=== PATIENT | male | born 1980 | race Caucasian/White ===

== ENCOUNTER 2022-09-28 02:23 | Emergency (ER) | payer MEDICARE, OTHER, MEDICAID ==
[2022-09-28] MEDS ORDERED: Azithromycin 250 MG Tab PO ONE (02:24)
== END 2022-09-28 03:02 | disposition other institution (70) ==
LOC: FB.ED 02:23
DX: J40 Bronchitis, not specified as acute or chronic (principal); Z79.82 Long term (current) use of aspirin
CPT/HCPCS: 99283; 99284; A9270-GY

== ENCOUNTER 2022-09-28 14:18 | Emergency (ER) | payer MEDICARE, OTHER, MEDICAID ==
[2022-09-28] MEDS: LORazepam 2 MG/ML SDV IM ONE (15:15)
[2022-09-28 16:22] LABS: HEMOGLOBIN 15.8 g/dL (12.9-17.7); MEAN CORPUSCULAR HEMOGLOBIN 32.2 pg (27.0-33.3); MEAN CORPUSCULAR HGB CONC 33.6 g/dL (28.7-35.3); MEAN CORPUSCULAR VOLUME 95.8 fL (80.8-98.7); RED BLOOD CELL COUNT 4.9 x10(6)uL (3.90-5.90); WHITE BLOOD CELL COUNT,WBC 12.7 x10-3/uL (3.2-10.1)
[2022-09-28 16:26] LABS: BLOOD UREA NITROGEN,BUN 16 mg/dL (7-18); CALCIUM 10.5 mg/dL (8.6-10.2); CARBON DIOXIDE,CO2 28 mmol/L (21-32); CHLORIDE,CL 106 mmol/L (100-110); ESTIMATED GFR 98 mL/min (>60); GLUCOSE RANDOM 160 mg/dL (80-116); POTASSIUM,K 4.9 mmol/L (3.5-5.3); SODIUM,NA 149 mmol/L (135-145)
[2022-09-28] MEDS: cefTRIAXone 1 GM Vial IM ONE (16:50)
[2022-09-28] MEDS: Ondansetron 4 MG/2 ML SDV IM ONE (16:50)
== END 2022-09-28 17:17 | disposition other institution (70) ==
LOC: FB.ED 14:18
DX: J40 Bronchitis, not specified as acute or chronic (principal); Z79.82 Long term (current) use of aspirin; Z79.899 Other long term (current) drug therapy
CPT/HCPCS: 36415; 71045; 80048; 85027; 86140; 96372; 99284; J0696; J2060; J2405

== ENCOUNTER 2024-04-03 21:37 | Emergency (ER) | payer MEDICARE, OTHER, MEDICAID ==
[2024-04-03] MEDS ORDERED: Cephalexin 500 MG Cap PO ONE (21:38)
== END 2024-04-03 22:30 | disposition home or self-care (01) ==
LOC: FB.ED 21:37
DX: L03.115 Cellulitis of right lower limb (principal); Z79.82 Long term (current) use of aspirin; Z79.899 Other long term (current) drug therapy
CPT/HCPCS: 99283; A9270